=== PATIENT | female | born 2005 | race Two or more races ===

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

== ENCOUNTER 2024-03-15 07:39 | Day surgery (SDC) | payer OTHER ==
[~2024-03-15] VITALS: Ht 165.1 cm; Wt 67.5 kg
[~2024-03-15 07:39] MED LIST: AMOX875T2 PO; CHLO0.124 MT; IBUP-1022 PO; LARI1TAB5; METH4PACK PO
[2024-03-15] MEDS ORDERED: fentaNYL 100 MCG/2 ML INJECTION As Ordered ONE (10:15)
[2024-03-15] MEDS ORDERED: SEVOFLURANE INHAL SOLN 250 ML BTL As Ordered ONE (10:15)
[2024-03-15] MEDS ORDERED: METOCLOPRAMIDE INJ 10MG/2ML VIAL As Ordered ONE (10:15)
[2024-03-15] MEDS ORDERED: ROCURONIUM BROMIDE 50MG/5ML VIAL As Ordered ONE (10:15)
[2024-03-15] MEDS ORDERED: MIDAZOLAM INJ 2MG/2ML VIAL As Ordered ONE (10:15)
[2024-03-15] MEDS ORDERED: dexmedeTOMIDine (4MCG/ML)200MCG/50ML BTL (PRECEDEX) As Ordered ONE (10:15)
[2024-03-15] MEDS ORDERED: ACETAMINOPHEN 1000MG 100ML IV BAG As Ordered ONE (10:15)
[2024-03-15] MEDS ORDERED: SUGAMMADEX SODIUM 500 MG/5 ML VIAL (BRIDION) As Ordered ONE (10:15)
[2024-03-15] MEDS ORDERED: LIDOCAINE 2% 100MG/5ML SDV (FOR ANES.) As Ordered ONE (10:15)
[2024-03-15] MEDS ORDERED: propofoL 200 MG/20 ML VIAL As Ordered ONE (10:15)
[2024-03-15] MEDS ORDERED: ONDANSETRON 4MG 2ML VIAL As Ordered ONE (10:15)
[2024-03-15] MEDS ORDERED: oxyCODONE 5MG TAB PO PRN (10:30)
[2024-03-15] MEDS ORDERED: HYDROMORPHONE HCL 0.5 MG/ 0.5 ML SYRINGE IV PRN (10:30)
[2024-03-15] MEDS ORDERED: ONDANSETRON 4MG 2ML VIAL IV PRN (10:30)
[2024-03-15] MEDS ORDERED: fentaNYL 100 MCG/2 ML INJECTION IV PRN (10:30)
[2024-03-15] MEDS: LR 1,000 ML IV SCH (10:33)
[2024-03-15] MEDS ORDERED: LR 1,000 ML IV SCH (10:55)
[2024-03-15] MEDS: HYDROcodone/APAP LIQUID 7.5-325MG 15ML UDC (LORTAB ELIXIR) PO PRN (10:58)
[2024-03-15 11:07] VITALS: BP 118/69; TEMP 96.9; O2SAT 99
== END 2024-03-15 11:26 | disposition home or self-care (01) ==
LOC: M SDC 07:39
PROVIDERS: ATTEND Otolaryngology
DX: J35.03 Chronic tonsillitis and adenoiditis (principal)
CPT/HCPCS: 42826; 81025; 88302; J0131; J0665; J1100; J2250; J2405; J2765; J3010